=== PATIENT | male | born 1965 | race African-American/Black ===

== ENCOUNTER → 2016-12-06 | Day surgery (SDC) | payer OTHER ==
[~2016-12-06] MED LIST: LIDOCAINE 2% JELLY 5 ML TUBE ONE
== END ==
LOC: END 07:34
PROVIDERS: ATTEND Internal Medicine Gastroenterology
DX: R69 Illness, unspecified (principal)
CPT/HCPCS: 91010

== ENCOUNTER 2018-03-19 10:50 | Day surgery (SDC) | payer OTHER ==
[2018-03-12 11:20] LABS: HEMATOCRIT 48.1 % (37.9-51.0); MEAN CORPUSCULAR HGB CONC 35.4 g/dL (32.0-36.0); MEAN CORPUSCULAR VOLUME 90 fl (80-97); PLATELET COUNT 191 10^3/uL (150-450); RED BLOOD COUNT 5.32 10^6/uL (4.35-5.55); RED CELL DISTRIBUTION WIDTH 13.3 % (11.5-14.0)
[~2018-03-19 10:50] MED LIST changes: +LACTATED RINGERS 1000 ML IV PRN; +LIDOCAINE 0.5% INJ-PF (5 MG/ML) 50 ML SDV SUBCUT PRN; +LIDOCAINE 1% INJ-PF (10 MG/ML) 30 ML SDV ONE; -LIDOCAINE 2% JELLY 5 ML TUBE ONE
[2018-03-19] MEDS ORDERED: PROPOFOL INJ 200 MG/20 ML VIAL IV ONE (12:16)
[2018-03-19] MEDS ORDERED: MIDAZOLAM 2 MG/2 ML INJ ONE (12:16)
[2018-03-19] MEDS ORDERED: FENTANYL CITRATE INJ/PF 100 MCG/2 ML AMPUL ONE (12:16)
[2018-03-19] MEDS ORDERED: CEFAZOLIN 1 GM/D5W RTU 1 GM/50 ML RTUPB IV ONE (12:22)
[2018-03-19] MEDS ORDERED: MORPHINE SULFATE 10 MG/ML INJ IV PRN (13:01)
[2018-03-19] MEDS ORDERED: MEPERIDINE HCL/PF INJ 25 MG/1 ML DISP.SYRIN IV PRN (13:01)
[2018-03-19] MEDS ORDERED: OXYCODONE-ACETAMINOPHEN 5-325 MG TABLET PO PRN ×3 (13:01→13:18)
[2018-03-19] MEDS ORDERED: DIPHENHYDRAMINE HCL 50 MG/ML VIAL IV PRN (13:01)
[2018-03-19] MEDS ORDERED: PROMETHAZINE HCL INJ 25 MG/1 ML VIAL IV PRN ×2 (13:01)
[2018-03-19] MEDS ORDERED: FENTANYL CITRATE INJ/PF 100 MCG/2 ML AMPUL IV PRN ×3 (13:01)
--- NOTE | 2018-03-19 13:11 | Operative Report ---
Operative Report DATE OF SURGERY: 03/19/18 PREOPERATIVE DIAGNOSIS: Multiple right upper extremity lipomas POSTOPERATIVE DIAGNOSIS: Same OPERATION: Excisional debridement of right upper extremity lipomas via 2 incisions SURGEON: WHIT BLOUNT 1ST SECOND BALLER: ADRIANA MENDEZ ANESTHESIA: LMAC TISSUE REMOVED OR ALTERED: Multiple lipomas COMPLICATIONS: None ESTIMATED BLOOD LOSS: Scant INTRAOPERATIVE FINDINGS: See below PROCEDURE: Patient was taken from the preop holding area with the right upper extremity was marked to the main operating room where LMAC anesthesia was induced. Right arm was asked over the patient's chest and the right posterior lateral aspect of the right upper arm was prepped and draped in sterile fashion. Surgical plan directed. The areas of palpable nodularity were confined to 2 areas. Both areas on the mid -lateral posterior aspect of the right arm were anesthetized with 1% plain lidocaine, and 2 parallel 3 cm on the extensor surface of the right arm. Multiple lipomas from the subcutaneous tissue were removed using a combination of blunt, he admits that and electrocautery dissection. Specimens were passed in a container to pathology. Wound closed in layers with 3-0 Vicryl benzoin Steri-Strips 4 x 4's and Kerlix. Patient was taken to recovery room stable condition The physician mailing machine assistant, Ms. Carbone, provided assistance during this case by: Assisting with retracting tissue, instillation of local anesthesia and closure of skin incisions.
--- NOTE | 2018-03-19 13:18 | Discharge Summary ---
Discharge Summary (SDC) - Discharge Final Diagnosis: Multiple lipomas Date of Surgery: 03/19/18 Discharge Date: 03/19/18 Condition: Stable Treatment or Instructions: WOUND CARE: 1) Do not shower for 48 hours. Leave gauze and kerlix in place. In 48 hours you may remove kerlix and gauze but leave steri strips underneath in place. Shower with warm water and soap, pat dry, do not scrub. Re-cover with gauze and tape if needed. 2) Avoid excessive use of arm until follow up appointment. PAIN MANAGEMENT: 1) You may take Toradol 10mg one pill by mouth every six hours as needed for pain. FOLLOW UP: 1) Follow up at [facility] is 7-10 days. Call clinic sooner with questions/concerns. Prescriptions: Ketorolac Tromethamine [Toradol 10 mg Tablet] 10 mg PO Q6HP PRN #20 tablet PRN Reason: Referrals: [facility] CARRASCO MD [Primary Care Provider] - Discharge Diet: As Tolerated Discharge Activity: No Lifting/Push/Pulling, Walk Frequently Report the Following to Your Physician Immediately: Increase in Pain, Fever over 101 Degrees, Unusual Bleeding, Redness, Drainage-Foul Smelling
[2018-03-19 14:58] VITALS: BP 115/75
== END 2018-03-19 14:55 | disposition home or self-care (01) ==
LOC: OROUT 10:50
PROVIDERS: ATTEND Surgery
DX: D17.21 Benign lipomatous neoplasm of skin and subcutaneous tissue of right arm (principal); F43.10 Post-traumatic stress disorder, unspecified; M19.90 Unspecified osteoarthritis, unspecified site; K21.9 Gastro-esophageal reflux disease without esophagitis; Z79.899 Other long term (current) drug therapy; F41.9 Anxiety disorder, unspecified; M54.9 Dorsalgia, unspecified
CPT/HCPCS: 11042; 36415; 85027; 88304 ×2; J2250; J0690; J3010; J3490; J2704; 400